=== PATIENT | female | born 1955 | race Hispanic/Latino ===

== ENCOUNTER → 2023-07-28 | Outpatient (CLI) | payer MEDICARE ==
[2023-07-28 12:13] LABS: ALBUMIN 3.7 g/dL (3.5-5.0); BILIRUBIN,TOTAL 0.8 mg/dL (0.2-1.0); CREATININE 0.8 mg/dL (0.5-1.5); POTASSIUM 4.3 mmol/L (3.5-5.1); THYROID STIMULATING HORMONE 1.38 uIU/mL (0.36-3.74); TOTAL PROTEIN, SERUM 7.8 g/dL (6.0-8.3)
== END | disposition home or self-care (01) ==
LOC: LAB 10:15
PROVIDERS: ATTEND Student in an Organized Health Care Education/Training Program
DX: R07.9 Chest pain, unspecified (principal); R00.1 Bradycardia, unspecified
CPT/HCPCS: 36415; 80053; 80061; 84443

== ENCOUNTER → 2023-08-21 | Outpatient (CLI) | payer MEDICARE ==
[~2023-08-21] MED LIST: IOHEXOL 350 MG/ML 100ML INFUS..BTL IV ONE
== END | disposition home or self-care (01) ==
LOC: RAH 07:30 → EDUNIT# 08-22 08:00
PROVIDERS: ATTEND Student in an Organized Health Care Education/Training Program
DX: R07.9 Chest pain, unspecified (principal)
CPT/HCPCS: 75574; Q9967

== ENCOUNTER → 2023-09-11 | Outpatient (CLI) | payer MEDICARE | END | disposition home or self-care (01) | LOC: SHCH 14:56 | PROVIDERS: ATTEND Student in an Organized Health Care Education/Training Program | DX: I51.7 Cardiomegaly (principal); R07.9 Chest pain, unspecified | CPT/HCPCS: 93306 ==

== ENCOUNTER → 2023-11-19 | Outpatient (CLI) | payer MEDICARE ==
[2023-11-19 12:36] LABS: CHOLESTEROL 169 mg/dL (<200); HDL CHOLESTEROL 51 mg/dL (35-85); LDL DIRECT 95 mg/dL (0-99); TRIGLYCERIDES 194 mg/dL (30-200)
== END | disposition home or self-care (01) ==
LOC: LAB 08:41
PROVIDERS: ATTEND Student in an Organized Health Care Education/Training Program
DX: I10 Essential (primary) hypertension (principal); R00.1 Bradycardia, unspecified; R07.9 Chest pain, unspecified
CPT/HCPCS: 36415; 80061

== ENCOUNTER → 2024-02-24 | Outpatient (CLI) | payer MEDICARE | END | disposition home or self-care (01) | LOC: RAH 11:14 | PROVIDERS: ATTEND Student in an Organized Health Care Education/Training Program | DX: I07.1 Rheumatic tricuspid insufficiency (principal); R06.02 Shortness of breath; R42 Dizziness and giddiness | CPT/HCPCS: 93306 ==

== ENCOUNTER → 2024-03-02 | Outpatient (CLI) | payer MEDICARE | END | disposition home or self-care (01) | LOC: CANPRECLI → RAH 09:50 | PROVIDERS: ATTEND Student in an Organized Health Care Education/Training Program | DX: N20.0 Calculus of kidney (principal); N28.1 Cyst of kidney, acquired; K76.0 Fatty (change of) liver, not elsewhere classified; K44.9 Diaphragmatic hernia without obstruction or gangrene; M47.815 Spondylosis without myelopathy or radiculopathy, thoracolumbar region; N13.30 Unspecified hydronephrosis | CPT/HCPCS: 74176 ==

== ENCOUNTER → 2024-03-16 | Outpatient (CLI) | payer MEDICARE ==
[2024-03-16 12:24] LABS: CREATININE 0.8 mg/dL (0.5-1.0); POTASSIUM 4.2 mmol/L (3.5-5.1)
== END | disposition home or self-care (01) ==
LOC: LAB 10:13
PROVIDERS: ATTEND Student in an Organized Health Care Education/Training Program
DX: I10 Essential (primary) hypertension (principal); R07.9 Chest pain, unspecified
CPT/HCPCS: 36415; 80048

== ENCOUNTER → 2024-04-22 | Outpatient (CLI) | payer MEDICARE ==
[2024-04-22 12:30] LABS: ALBUMIN 3.8 g/dL (3.5-5.0); BILIRUBIN,TOTAL 0.8 mg/dL (0.2-1.0); POTASSIUM 4.7 mmol/L (3.5-5.1); TOTAL PROTEIN, SERUM 7.8 g/dL (6.0-8.3)
== END | disposition home or self-care (01) ==
LOC: LAB 10:22
PROVIDERS: ATTEND Student in an Organized Health Care Education/Training Program
DX: I10 Essential (primary) hypertension (principal)
CPT/HCPCS: 36415; 80053

== ENCOUNTER → 2024-04-27 | Outpatient (CLI) | payer MEDICARE | END | disposition home or self-care (01) | LOC: RAH 10:35 | PROVIDERS: ATTEND Student in an Organized Health Care Education/Training Program | DX: R42 Dizziness and giddiness (principal); R06.02 Shortness of breath; M47.815 Spondylosis without myelopathy or radiculopathy, thoracolumbar region | CPT/HCPCS: 75574; Q9967 ==

== ENCOUNTER 2024-09-06 06:24 | Day surgery (SDC) | payer MEDICARE ==
--- NOTE | 2024-09-03 09:41 | EKG ---
[facility] Test Date: 2024-09-03 Test Time: 10:29:37 Pat Name: EMILY FERGUSON Department: [facility] Room: Gender: F Business Development Recruiter: [id number] : 1955 Requested By: RUMA BAR Order Number: [id number] Reading MD: Graciela Bar Measurements Intervals [place] Rate: 53 P: 19 ID: 159 QRS: 6 QRSD: 98 T: 39 QT: 449 QTc: 422 Interpretive Statements Sinus rhythm Low voltage, precordial leads No previous ECG available for comparison Electronically Signed On 09-03-2024 13:33:56 BILL CUTTER by Graciela Bar Please click the below link to view image of tracing.
[2024-09-03 09:43] LABS: BASOPHILS # (AUTO) 0.03 K/uL (0.00-0.20); BASOPHILS % (AUTO) 0.6 % (0.0-5.0); EOSINOPHILS # (AUTO) 0.27 K/uL (0.00-0.70); EOSINOPHILS % (AUTO) 5.3 % (0.0-8.0); HEMATOCRIT 42.9 % (36-48); IMMATURE GRANULOCYTE ABSOLUTE 0.01 K/uL (0-1); LYMPHOCYTES # (AUTO) 2.1 K/uL (1.0-4.8); LYMPHOCYTES % (AUTO) 41.1 % (21.0-51.0); MEAN CORPUSCULAR HEMOGLOBIN 31.2 pg (27.0-33.0); MEAN CORPUSCULAR HGB CONC 33.1 g/dL (32.0-36.0); MEAN CORPUSCULAR VOLUME 94.3 fL (79-99); MONOCYTES # (AUTO) 0.4 K/uL (0.1-1.0); MONOCYTES % (AUTO) 6.9 % (3.0-13.0); NEUTROPHILS # (AUTO) 2.3 K/uL (1.8-7.7); NEUTROPHILS % (AUTO) 45.9 % (40.0-77.0); PLATELET COUNT (AUTO) 227 K/uL (130-400); RED BLOOD CELL COUNT(AUTO) 4.55 MIL/uL (4.00-5.50); RED CELL DISTRIBUTION WIDTH 12.6 % (11.0-15.5); WHITE BLOOD COUNT (AUTO) 5.1 K/uL (4.8-10.8)
[2024-09-03 09:43] LABS: APPEARANCE,URINE CLEAR (CLEAR); BILIRUBIN,URINE NEGATIVE (NEGATIVE); COLOR,URINE LIGHT-YELLOW (YELLOW); GLUCOSE, URINE (UA) NEGATIVE (NEGATIVE); KETONES,URINE NEGATIVE (NEGATIVE); LEUKOCYTE ESTERASE ,URINE 250 Leu/uL (NEGATIVE); NITRATE,URINE NEGATIVE (NEGATIVE); OCCULT BLOOD,URINE NEGATIVE (NEGATIVE); PROTEIN,URINE NEGATIVE (NEGATIVE); UROBILINOGEN,URINE 0.2 mg/dL (0.2-1.0)
[2024-09-03 09:44] LABS: ADD UA MICROSCOPIC YES
[2024-09-03 09:45] VITALS: PULSE 58; RESP 14; TEMP 97.8
[2024-09-03 09:55] LABS: SQUAMOUS EPITHELIAL CELL,UR RARE /HPF (0-2); WBC,URINE 0-1 /HPF (0-1)
[2024-09-03 09:56] LABS: CREATININE 0.9 mg/dL (0.5-1.0); POTASSIUM 3.9 mmol/L (3.5-5.1)
[2024-09-03 10:08] LABS: INR 0.98 (0.85-1.15); PROTHROMBIN TIME 10.6 SEC (9.6-11.6)
[2024-09-03 10:10] LABS: PARTIAL THROMBOPLASTIN TIME 28.2 SEC (26.3-35.5)
--- NOTE | 2024-09-03 10:18 | HMCIMG ---
CHEST 1VW REASON: PRE OP COMPARISON: None. FINDINGS: Single view of the chest was obtained. Lungs are clear. Heart size is normal. There is no pulmonary vascular congestion. Mediastinum and bony thorax appear unremarkable. IMPRESSION: 1. Normal single view chest x-ray.
[2024-09-03 10:20] LABS: B-TYPE NATRIURETIC PEPTIDE 33 pg/mL (0-100)
[~2024-09-06] VITALS: Ht 152.4 cm; Wt 61.7 kg
[~2024-09-06 06:24] MED LIST changes: +ALEN70TA80 PO; +ATOR20TA65 PO; -IOHEXOL 350 MG/ML 100ML INFUS..BTL IV ONE; +LEVO50CA4 PO; +LISI10TA24 PO
== END 2024-09-06 06:25 | disposition home or self-care (01) ==
LOC: DAH 06:24
PROVIDERS: ATTEND Student in an Organized Health Care Education/Training Program
DX: R07.9 Chest pain, unspecified (principal); Z53.8 Procedure and treatment not carried out for other reasons; I25.10 Atherosclerotic heart disease of native coronary artery without angina pectoris; Z79.01 Long term (current) use of anticoagulants; Z79.899 Other long term (current) drug therapy
CPT/HCPCS: 36415; 71045; 80048; 81001; 83880; 85025; 85610; 85730; 87086; 93005

== ENCOUNTER 2024-10-25 09:36 | Day surgery (SDC) | payer MEDICARE ==
--- NOTE | 2024-10-21 10:00 | EKG ---
[facility] Test Date: 2024-10-21 Test Time: 10:47:42 Pat Name: EMILY FERGUSON Department: [facility] Room: Gender: F Vp Legal Affairs: [id number] : 1955 Requested By: RUMA ABRAHAM Order Number: [id number] Reading MD: Alton Valencia Measurements Intervals [place] Rate: 54 P: 16 MA: 159 QRS: 11 QRSD: 97 T: 52 QT: 447 QTc: 422 Interpretive Statements Sinus rhythm Compared to ECG 09/03/2024 10:29:37 No significant changes Electronically Signed On 10-21-2024 19:46:48 MINE MOTOR OPERATOR by Alton Valencia Please click the below link to view image of tracing.
[2024-10-21 10:14] LABS: BASOPHILS # (AUTO) 0.05 K/uL (0.00-0.20); BASOPHILS % (AUTO) 0.9 % (0.0-5.0); EOSINOPHILS # (AUTO) 0.32 K/uL (0.00-0.70); EOSINOPHILS % (AUTO) 5.7 % (0.0-8.0); HEMATOCRIT 41.7 % (36-48); IMMATURE GRANULOCYTE ABSOLUTE 0.02 K/uL (0-1); LYMPHOCYTES # (AUTO) 2.2 K/uL (1.0-4.8); LYMPHOCYTES % (AUTO) 39.7 % (21.0-51.0); MEAN CORPUSCULAR HEMOGLOBIN 31.2 pg (27.0-33.0); MEAN CORPUSCULAR HGB CONC 33.6 g/dL (32.0-36.0); MEAN CORPUSCULAR VOLUME 92.9 fL (79-99); MONOCYTES # (AUTO) 0.4 K/uL (0.1-1.0); MONOCYTES % (AUTO) 7.8 % (3.0-13.0); NEUTROPHILS # (AUTO) 2.6 K/uL (1.8-7.7); NEUTROPHILS % (AUTO) 45.5 % (40.0-77.0); PLATELET COUNT (AUTO) 221 K/uL (130-400); RED BLOOD CELL COUNT(AUTO) 4.49 MIL/uL (4.00-5.50); RED CELL DISTRIBUTION WIDTH 12.7 % (11.0-15.5); WHITE BLOOD COUNT (AUTO) 5.6 K/uL (4.8-10.8)
[2024-10-21 10:16] LABS: APPEARANCE,URINE CLEAR (CLEAR); BILIRUBIN,URINE NEGATIVE (NEGATIVE); COLOR,URINE LIGHT-YELLOW (YELLOW); GLUCOSE, URINE (UA) NEGATIVE (NEGATIVE); KETONES,URINE NEGATIVE (NEGATIVE); LEUKOCYTE ESTERASE ,URINE 75 Leu/uL (NEGATIVE); NITRATE,URINE NEGATIVE (NEGATIVE); OCCULT BLOOD,URINE NEGATIVE (NEGATIVE); PH,URINE 6.5 (5.0-8.0); PROTEIN,URINE NEGATIVE (NEGATIVE); UROBILINOGEN,URINE 0.2 mg/dL (0.2-1.0)
[2024-10-21 10:17] LABS: ADD UA MICROSCOPIC YES
[2024-10-21 10:20] LABS: BACTERIA,URINE RARE /HPF (None Seen); MUCUS,URINE RARE LPF (None Seen); RBC,URINE 0-1 /HPF (0-1); SQUAMOUS EPITHELIAL CELL,UR RARE /HPF (0-2); WBC,URINE 0-1 /HPF (0-1)
[2024-10-21 10:21] VITALS: BP 153/85; PULSE 56; RESP 18; TEMP 97.7
[2024-10-21 10:22] LABS: CREATININE 0.8 mg/dL (0.5-1.0); POTASSIUM 4.3 mmol/L (3.5-5.1)
[2024-10-21 10:24] LABS: INR <= 0.93 (0.85-1.15); PROTHROMBIN TIME 10.5 SEC (9.6-11.6)
[2024-10-21 10:25] LABS: PARTIAL THROMBOPLASTIN TIME 27.4 SEC (26.3-35.5)
[2024-10-21 10:35] LABS: B-TYPE NATRIURETIC PEPTIDE 20 pg/mL (0-100)
--- NOTE | 2024-10-21 12:46 | HMCIMG ---
CHEST 1VW REASON: PREOP COMPARISON: 09/03/2024 FINDINGS: Single view of the chest was obtained. Lungs are clear. Heart size is normal. There is no pulmonary vascular congestion. Mediastinum and bony thorax appear unremarkable. IMPRESSION: 1. Normal single view chest x-ray.
[~2024-10-25] VITALS: Ht 152.4 cm; Wt 62.0 kg
[2024-10-25] VITALS (11 sets, daily range): BP systolic 84–165; BP diastolic 49–83; PULSE 50–69; RESP 14–18; TEMP 97.9–98.1
[2024-10-25] MEDS: 0.9%NACL 1000ML 1,000 ML IV SCH (10:36)
[2024-10-25] MEDS ORDERED: LIDOCAINE HCL 400MG/20ML VIAL ONE (12:26)
[2024-10-25] MEDS ORDERED: NITROGLYCERIN 50MG VIAL ONE (12:26)
[2024-10-25] MEDS ORDERED: HEParin-NS 1,000 UNIT/500 ML 1,000 ML IV ONE (12:26)
[2024-10-25] MEDS ORDERED: IOHEXOL 350 MG/ML 100ML INFUS..BTL IV ONE (12:26)
[2024-10-25] MEDS ORDERED: VERAPAMIL HCL 2.5 MG/ML VIAL ONE (12:26)
[2024-10-25] MEDS ORDERED: HEParin 10,000 UNIT/10ML (1,000 UNIT/ML) VIAL ONE (12:26)
[2024-10-25] MEDS ORDERED: FENTanyl CITRate PF 50 MCG/1 ML 2ML VIAL ONE (12:34)
[2024-10-25] MEDS ORDERED: MIDAZOLAM HCL 1 MG/ML 2ML VIAL ONE (12:34)
[2024-10-25] MEDS ORDERED: DEXTROSE 50%-WATER 50 ML DISP.SYRIN IV PRN ×2 (13:30)
[2024-10-25] MEDS ORDERED: GLUCAGON 1MG KIT 1 MG ML IM PRN ×2 (13:30)
[2024-10-25] MEDS ORDERED: 0.9%NACL 1000ML 1,000 ML IV SCH (13:30)
--- NOTE | 2024-10-25 13:42 | PRN ---
PROCEDURE REPORT DATE OF PROCEDURE: Oct 25, 2024 ROOFING LAYER: [Ruma Bar MD ] PROCEDURE PERFORMED: Conscious sedation Ultrasound guided right radial artery access Selective left coronary artery angiogram Selective right coronary artery angiogram Left heart catheterization TR band 13 prema over right radial artery INDICATION: Abnormal coronary CTA DESCRIPTION OF PROCEDURE: After informed consent was obtained, the patient was prepped and draped in the usual sterile fashion. A 6 Cuban arterial sheath was inserted in the right radial artery using ultrasound guidance with first pass wall puncture. The arterial sheath was aspirated and flushed. A 6 Cuban JL 3.5 was then advanced to the ascending aorta over an exchange length J-tip guidewire, was aspirated and flushed, and was used for selective coronary angiograms in multiple obliquities. A JR-4 was advanced in a similar fashion to the ascending aorta over the J-tipped guidewire and was used for selective right coronary angiograms in multiple oblique views with findings as outlined below. The JR-4 catheter advanced into the LV and pressures were obtained with a pull-back across the aortic valve. A TR band was placed over right radial artery. FLUOROSCOPY TIME: 3.2 min LEFT HEART HEMODYNAMICS: LVEDP 21 mm Hg and no gradient Ao CORONARY ANGIOGRAM: LEFT MAIN: Patent and 0% stenosis. Gives rise to LCx and LAD. LEFT ANTERIOR DESCENDING: Large vessel giving rise to two Diagonal branches. Tortuous with luminal irregularities and SHIVANI three flow. Diagonals are patent. LEFT CIRCUMFLEX: Large and gives rise to two OM branches. 0% stenosis. RIGHT CORONARY ARTERY: Large, dominant vessel giving rise to PDA and PL branches. 0% stenosis. HEMOSTASIS: TR band 12 prema over right radial artery INTERVENTIONS: None. COMPLICATIONS: None FINDINGS: Normal coronary anatomy with no evidence of obstructive disease ESTIMATED BLOOD LOSS: 5 cc RECOMMENDATIONS/INSTRUCTIONS: Aggressive risk factor modification. Consider aggressive blood pressure control CONTRAST DELIVERED TO PATIENT (mL): 80cc RUMA Marie MD, MD Oct 25, 2024 13:42
--- NOTE | 2024-10-25 14:06 | NUR ---
pt noted with nausea vomit clear diaphoretic with low b/p denies cp sob dr called to culture media laboratory assistant vo given to medicate benadry 50 mg iv, atropine 0.5mg , zofran 4 mg ivp and stat ekg with 250 bolus ns
[2024-10-25] MEDS ORDERED: ATROPINE 1MG SYG IVP ONE (14:21)
[2024-10-25] MEDS: ondanSETRON 4MG INJ IVP ONE (14:36)
[2024-10-25] MEDS: DiphenhydrAMINE HCL 50 MG/ML VIAL ONE (14:36)
--- NOTE | 2024-10-25 17:35 | NUR ---
RE: VASC BAND 2 ML OF AIR REMOVED FROM VASC BAND, NO BLEEDING OR HEMATOMA NOTED. VASC BAND REMOVED, SITE COVERED WITH STERILE GAUZE/TEGADERM. PATIENT TOLERATED WELL.
--- NOTE | 2024-10-25 18:10 | NUR ---
PATIENT DISCHARGED FROM FACILITY VIA WHEELCHAIR BY AR SRINIVASAN AND ASSISTED INTO PRIVATE VEHICLE DRIVEN BY SPOUSE
--- NOTE | 2024-10-27 10:19 | EKG ---
[facility] Test Date: 2024-10-25 Test Time: 15:24:04 Pat Name: EMILY FERGUSON Department: [facility] Room: Gender: Female Scrum Project Manager: [id number] : 1955 Requested By: RUMA ABRAHAM Order Number: [id number] Reading MD: Sarbjit Branch Measurements Intervals [place] Rate: 66 P: 65 NM: 167 QRS: -4 QRSD: 99 T: 40 QT: 470 QTc: 492 Interpretive Statements Sinus rhythm Compared to ECG 10/21/2024 10:47:42 No significant changes Electronically Signed On 10-29-2024 17:28:48 MELTER LOADER by Sarbjit Branch Please click the below link to view image of tracing.
== END 2024-10-25 17:10 | disposition home or self-care (01) ==
LOC: DAH 09:36
PROVIDERS: ATTEND Student in an Organized Health Care Education/Training Program
DX: R94.39 Abnormal result of other cardiovascular function study (principal); I20.89 Other forms of angina pectoris; R07.9 Chest pain, unspecified; I77.1 Stricture of artery; I10 Essential (primary) hypertension; E78.5 Hyperlipidemia, unspecified; E03.9 Hypothyroidism, unspecified; R00.1 Bradycardia, unspecified; R31.9 Hematuria, unspecified; N20.0 Calculus of kidney; Z79.899 Other long term (current) drug therapy
CPT/HCPCS: 80048; 83880; 85025; 85610; 85730; 87086; 81001; 36415; 71045; 93005 ×2; 93458; A4223 ×3; Q9965; C1769; C1894; A4649; J1200; J3010; J3490 ×3; J7030; J0461; J1644 ×2; J2250; J2405; Q9967; A4215; A4222; A4221; A4663; A4216; A4606; 99156; 99157